=== PATIENT | male | born 1990 | race American Indian/Alaskan Native ===

== ENCOUNTER 2017-12-29 03:59 | Emergency (ER) | payer BC ==
[2017-12-29 07:00] LABS: Bilirubin,Urine NEG (Negative); Blood,Urine NEG (Negative); Color,Urine Amber (Yellow); Mucus,Urine 3+ /HPF
[2017-12-29 07:47] LABS: Hematocrit 44.1 % (35.5-45.6); Hemoglobin 14.6 gm/dl (11.8-15.2); Mean Corpuscular HGB Conc 33 % (32-34); Mean Corpuscular Hemoglobin 29 pg (28-32); Mean Corpuscular Volume 87 fl (84-94); Platelet Count 221 K/mm3 (140-440); Red Blood Count 5.07 M/mm3 (3.65-5.03); Red Cell Distribution Width 13.1 % (13.2-15.2)
[2017-12-29 08:11] LABS: BUN/Creatinine Ratio 18; Blood Urea Nitrogen 14 mg/dL (9-20); Hemolysis Index 4
[2017-12-29] MEDS ORDERED: ZOFRAN ODT PO ONE (10:10)
[2017-12-29] MEDS ORDERED: DELTASONE PO ONE (10:10)
[2017-12-29] MEDS ORDERED: PERCOCET 5/325 PO ONE (10:10)
--- NOTE | 2017-12-29 10:12 | Emergency Department Report ---
ED Headache HPI - General Chief Complaint: Headache Stated Complaint: H/A Time Seen by Provider: 12/29/17 09:35 Source: patient, family - History of Present Illness Initial Comments: This is a 27-year-old male here complaining of headache off and on for 2 weeks. He said pain can be in the range of 2-9 out of 10. Reports that it hurts on top of his head of the front. Denies any visual problems. Denies any dizziness. No nausea or vomiting or sensitivity to light. States he usually doesn't get headaches and wants to get checked out. Denies any nausea or vomiting. Denies any neck pain or injury. Denies any chest pain or shortness of breath. Denies any nasal congestion or runny nose. Denies any cough or congestion. Pain at present is 2 out of 10. No excess abated or alleviating factor. He said he took Goody powder that doesn't help denies any fever or chills. Timing/Duration: waxing and waning, other (2 weeks) Quality: mild Head Injury Location: frontal Recent Head Trauma: no recent headache/trauma Modifying Factors: improves with: other (none) Associated Symptoms: denies symptoms. denies: confusion, fatigue, facial pain, fever/chills, flushing, loss of consciousness, nausea/vomiting, nasal congestion , nasal drainage, numbness in legs/feet, rash, seizures, sinus infection, stiff neck, vision changes, weakness Allergies/Adverse Reactions: Allergies No Known Allergies Allergy (Unverified 12/29/17 06:19) Home Medications: Ambulatory Orders Azithromycin [Zithromax Z-ARMEN] 250 mg PO DAILY 5 Days #1 pack 12/29/17 Cetirizine HCl [ZyrTEC] 10 mg PO QAM 14 Days #14 capsule 12/29/17 Fluticasone [Flonase] 1 spray NS QDAY 14 Days #1 bottle 12/29/17 Ibuprofen [Motrin] 600 mg PO Q8H PRN #12 tablet 12/29/17 ED Review of Systems ROS: Stated complaint: H/A Other details as noted in HPI Constitutional: denies: chills, fever Eyes: denies: eye pain, eye discharge, vision change ENT: denies: ear pain, throat pain, congestion Respiratory: denies: cough, shortness of breath, SOB with exertion, SOB at rest , wheezing Cardiovascular: denies: chest pain, palpitations, edema, syncope Gastrointestinal: denies: abdominal pain, nausea, vomiting, diarrhea Genitourinary: denies: urgency, dysuria Musculoskeletal: denies: back pain, joint swelling, arthralgia, myalgia Skin: denies: rash, lesions Neurological: denies: headache, weakness, numbness, paresthesias, confusion, abnormal gait, vertigo ED Past Medical Hx - Past Medical History Previous Medical History?: Yes Hx Seizures: Yes (seizure at 12 yrs old) - Surgical History Past Surgical History?: Yes Additional Surgical History: Left Wrist surgery - Family History Family history: hypertension - Social History Smoking Status: Current Every Day Smoker Substance Use Type: None - Medications Home Medications: Home Medications Medication Instructions Recorded Confirmed Last Taken Type Azithromycin [Zithromax Z-ARMEN] 250 mg PO DAILY 5 Days #1 pack 12/29/17 Unknown Rx Cetirizine HCl [ZyrTEC] 10 mg PO QAM 14 Days #14 capsule 12/29/17 Unknown Rx Fluticasone [Flonase] 1 spray NS QDAY 14 Days #1 bottle 12/29/17 Unknown Rx Ibuprofen [Motrin] 600 mg PO Q8H PRN #12 tablet 12/29/17 Unknown Rx ED Physical Exam - General Limitations: No Limitations General appearance: alert, in no apparent distress - Head Head exam: Present: atraumatic, normocephalic, normal inspection - Expanded Head Exam Expanded Head exam: Absent: laceration, abrasion, contusion, hematoma, racoon eyes, martinez's sign, general tenderness, tenderness of temporal artery, CSF rhinorrhea , CSF otorrhea - Eye Eye exam: Present: normal appearance, PERRL, EOMI. Absent: scleral icterus, conjunctival injection, nystagmus, periorbital swelling, periorbital tenderness Pupils: Present: normal accommodation - ENT ENT exam: Present: normal exam, normal orophraynx, mucous membranes moist, TM's normal bilaterally, normal external ear exam - Neck Neck exam: Present: normal inspection, full ROM, other (no C-spine tenderness). Absent: tenderness, lymphadenopathy - Respiratory Respiratory exam: Present: normal lung sounds bilaterally. Absent: respiratory distress, chest wall tenderness - Cardiovascular Cardiovascular Exam: Present: regular rate, normal rhythm, normal heart sounds. Absent: systolic murmur, diastolic murmur - GI/Abdominal GI/Abdominal exam: Present: soft, normal bowel sounds. Absent: distended, tenderness, guarding, rebound, rigid, organomegaly, mass, bruit, pulsatile mass , hernia - Extremities Exam Extremities exam: Present: normal inspection, full ROM, normal capillary refill , other (no cce, +2 pulses. No neurovascular compromise). Absent: tenderness, pedal edema, joint swelling, calf tenderness - Back Exam Back exam: Present: normal inspection, other (ambulates without difficulties). Absent: full ROM, tenderness, CVA tenderness (R), CVA tenderness (L), muscle spasm, paraspinal tenderness, vertebral tenderness, rash noted - Neurological Exam Neurological exam: Present: alert, oriented X3, normal gait - Expanded Neurological Exam Expanded Neurological exam: Absent: innattentive, memory loss-remote event, memory loss- recent event, ataxia, receptive aphasia, expressive aphasia, total aphasia, tremor, protecting the airway Patient oriented to: Present: person, place, time Speech: Present: fluid speech Cranial nerves: EOM's Intact: Normal, Gag Reflex: Normal, Tongue Deviation: Normal, Nystagmus: Normal, Facial Sensation: Normal Cerebellar function: Romberg: Normal Upper motor neuron: Pronator Drift: Normal, Sensory Extinction: Normal Sensory exam: Upper Extremity Light Touch: Normal, Upper Extremity Temperature: Normal, UE 2 Point Discrimination: Normal, Lower Extremity Light Touch: Normal, Lower Extremity Temperature: Normal, LE 2 Point Discrimination: Normal Motor strength exam: RUE: 5, LUE: 5, RLE: 5, LLE: 5 Best Eye Response ([place]): (4) open spontaneously Best Motor Response ([place]): (6) obeys commands Best Verbal Response ([place]): (5) oriented [place] Total: 15 - Psychiatric Psychiatric exam: Present: normal affect, normal mood - Skin Skin exam: Present: warm, dry, intact, normal color. Absent: rash ED Course Vital Signs 12/29/17 12/29/17 12/29/17 03:59 06:22 11:37 Temperature 98.8 F 98.8 F 100 F H Pulse Rate 95 H 88 104 H Respiratory 18 18 18 Rate Blood Pressure 148/80 148/80 Blood Pressure 160/83 [Right] O2 Sat by Pulse 96 97 100 Oximetry - Reevaluation(s) Reevaluation #1: 12/29/17 10:36 Patient given the physical 60 mg by mouth, Percocet 5/325 2 tablets by mouth for headache which helped his headache. He is orally hydrated with 4 cups of apple juice which he tolerated well due to dehydration. ED Medical Decision Making - Lab Data Result diagrams: 12/29/17 06:36 12/29/17 06:40 Lab Results 12/29/17 12/29/17 12/29/17 Range/Units 06:36 06:40 06:49 WBC 8.4 (4.5-11.0) K/mm3 RBC 5.07 H (3.65-5.03) M/mm3 Hgb 14.6 (11.8-15.2) gm/dl Hct 44.1 (35.5-45.6) % MCV 87 (84-94) fl MCH 29 (28-32) pg MCHC 33 (32-34) % RDW 13.1 L (13.2-15.2) % Plt Count 221 (140-440) K/mm3 Sodium 140 (137-145) mmol/L Potassium 4.2 (3.6-5.0) mmol/L Chloride 96.4 L (98-107) mmol/L Carbon Dioxide 25 (22-30) mmol/L Anion Gap 23 mmol/L BUN 14 (9-20) mg/dL Creatinine 0.8 (0.8-1.5) mg/dL Estimated GFR > 60 ml/min BUN/Creatinine Ratio 18 % Glucose 91 (75-100) mg/dL Calcium 10.0 (8.4-10.2) mg/dL Urine Color [place] (Yellow) Urine Turbidity Clear (Clear) Urine pH 5.0 (5.0-7.0) Ur Specific [place] 1.039 H (1.003-1.030) Urine Protein 100 mg/dl (Negative) mg/dL Urine Glucose (UA) Neg (Negative) mg/dL Urine Ketones 80 (Negative) mg/dL Urine Blood Neg (Negative) Urine Nitrite Neg (Negative) Urine Bilirubin Neg (Negative) Urine Urobilinogen 2.0 (<2.0) mg/dL Ur Leukocyte Esterase Neg (Negative) Urine WBC (Auto) 3.0 (0.0-6.0) /HPF Urine RBC (Auto) 2.0 (0.0-6.0) /HPF U Epithel Cells (Auto) 1.0 (0-13.0) /HPF Urine Mucus 3+ /HPF - Radiology Data Radiology results: report reviewed Patient had CT scan of the brain without contrast which was dictated by radiologist and report reviewed by myself. Please see report below Patient: ANDREINA TEAGUE MR#: [id number] : 1990 Acct:[id number] Age/Sex: 27 / M ADM Date: 12/29/17 Loc: ED Attending Dr: Ordering Physician: MERCEDES JAEGER Date of Service: 12/29/17 Procedure(s): CT head/brain wo con Accession Number(s): [id number] cc: MERCEDSE JAEGER CT HEAD WITHOUT CONTRAST: HISTORY: Headache for 2 weeks. TECHNIQUE: Sequential 2.5mm CT images. COMPARISON: none. FINDINGS: Cerebral Parenchyma: Within normal limits. Cerebellum: Within normal limits. Brainstem: Within normal limits. Ventricles: Normal. Sella: Normal. Extra-axial spaces: Normal. Basal Cisterns: Normal. Intracranial Hemorrhage: None. Midline Shift: None. Calvarium: Normal. Sinuses: Normal. Mastoid Air Cells: Normal. Visualized Orbits: Normal. IMPRESSION: No acute intracranial process identified. Transcribed By: TTR Dictated By: OSMIN LOUISE JR, MD Electronically Authenticated By: OSMIN LOUISE JR, MD Signed Date/Time: 12/29/17 1030 DD/ 1029 TD/TT: 12/29/17 1030 - Medical Decision Making ED course This is a 27-year-old male here with headaches that has been having occasional headache but he said he has had a headache at the front of his head 2 weeks on and off and is here to be evaluated. He is not having any other symptoms. He has never had a CT scan of her head. Her only complaint is headache . Over-the- counter medication which is Goody powder that does not help. She denies a history of seizure at 12 years old but none since then and denies any head injury. Patient was seen and examined by myself and found to have sinusitis. He had CT scan of the brain and head without contrast which was dictated by radiologist and report reviewed by myself and it shows no acute findings. Patient had CBC which was normal, BMP which was normal and he had urinalysis which shows high specific gravity and ketones of 80 which suggests dehydration. I discussed CT scan results the patient and also his lab work with diagnosis and treatment plan and he voiced understanding. A/P 1: Headache [id number] given Percocet 5/325 mg 2 tabs, zofran 8 mg ODT and prednisone [address] scan normal findings . Referred to Neurologist 2: Acute sinusitis: I discussed the patient that she needs to follow up with [facility] for primary care visit to manage for other medical problem. Patient will be discharged home on Z-Armen, Motrin, Flonase and Zyrtec. 3: Mild dehydration-patient orally hydrated with 4 cups of offered juice and he tolerated well. I encouraged him that he needs to drink at least 2 L of water and her juice daily. Patient discharged home a prescription for Motrin, Z-Armen, Flonase and Zyrtec, Patient educated types of headaches, medication, hydration, diagnosis and he voiced understanding. Vital signs are stable he is afebrile. Patient is nontoxic Patient said he is feeling a lot better and discharged home with his friend in stable condition. I discussed with him to follow up with neurologist and [facility] in 2-3 days. I also told him if his condition worsens, to return to the emergency room and he voiced understanding. - Differential Diagnosis intracranial hemorrhage, aneurysm, brain tumor, sinusitis, simple headache Critical care attestation.: If time is entered above; I have spent that time in minutes in the direct care of this critically ill patient, excluding procedure time. ED Disposition Clinical Impression: Dehydration, mild Sinusitis Qualifiers: Sinusitis location: frontal Chronicity: acute Recurrence: non-recurrent Qualified Code(s): J01.10 - Acute frontal sinusitis, unspecified Headache Qualifiers: Headache type: unspecified Headache chronicity pattern: acute headache Intractability: not intractable Qualified Code(s): R51 - Headache Disposition: DC-01 TO HOME OR SELFCARE Is pt being admited?: No Does the pt Need Aspirin: No Condition: Stable Instructions: Dehydration (ED), Sinusitis (ED), Acute Headache (ED) Additional Instructions: Please follow up with primary care and neurologist in 2-3 days. See referral in discharge instruction paperwork Youcan take Motrin for a headache. Take Z-Armen, Flonase and Zyrtec for sinusitis Please make sure he drink at least 2-3 L of water daily to prevent dehydration Return to the emergency room, if your condition worsens. Flush sinuses out with nasal saline wash and this will help to relieve sinusitis Prescriptions: Azithromycin [Zithromax Z-ARMEN] 250 mg PO DAILY 5 Days #1 pack Cetirizine HCl [ZyrTEC] 10 mg PO QAM 14 Days #14 capsule Fluticasone [Flonase] 1 spray NS QDAY 14 Days #1 bottle Ibuprofen [Motrin] 600 mg PO Q8H PRN #12 tablet PRN Reason: Pain Referrals: [facility] [Outside] - 2-3 Days ADÁN RAMIREZ MD [Staff Physician] - 2-3 Days Forms: Accompanied Note, Work/School Release Form(ED)
--- NOTE | 2017-12-29 10:41 | Cat Scan Report ---
CT HEAD WITHOUT CONTRAST: HISTORY: Headache for 2 weeks. TECHNIQUE: Sequential 2.5mm CT images. COMPARISON: none. FINDINGS: Cerebral Parenchyma: Within normal limits. Cerebellum: Within normal limits. Brainstem: Within normal limits. Ventricles: Normal. Sella: Normal. Extra-axial spaces: Normal. Basal Cisterns: Normal. Intracranial Hemorrhage: None. Midline Shift: None. Calvarium: Normal. Sinuses: Normal. Mastoid Air Cells: Normal. Visualized Orbits: Normal. IMPRESSION: No acute intracranial process identified.
[2017-12-29 11:38] VITALS: BP 160/83
== END 2017-12-29 11:38 | disposition home or self-care (01) ==
LOC: ED 03:59
DX: E86.0 Dehydration (principal); J01.10 Acute frontal sinusitis, unspecified; F17.200 Nicotine dependence, unspecified, uncomplicated
CPT/HCPCS: 36415; 70450; 80048; 81001; 85027; 99284; J7512; Q0162